=== PATIENT | female | born 2000 | race Two or more races ===

== ENCOUNTER 2019-07-02 15:29 | Outpatient (CLI) | payer OTHER ==
[2019-07-02 16:07] LABS: APPEARANCE,URINE CLEAR; BILIRUBIN,URINE NEGATIVE (NEGATIVE); COLOR,URINE STRAW; GLUCOSE, URINE NEGATIVE (NEGATIVE); KETONES,URINE NEGATIVE (NEGATIVE); LEUKOCYTE ESTERASE,URINE NEGATIVE (NEGATIVE); NITRITE,URINE NEGATIVE (NEGATIVE); PROTEIN,URINE NEGATIVE (NEGATIVE); URINE SPECIFIC GRAVITY 1.006; UROBILINOGEN,URINE NEGATIVE mg/dL (<2.0)
[2019-07-02 16:24] LABS: URINE AMPHETAMINES SCREEN NEGATIVE; URINE BARBITURATES SCREEN NEGATIVE; URINE BENZODIAZEPINES SCREEN NEGATIVE; URINE COCAINE SCREEN NEGATIVE; URINE MARIJUANA (THC) SCREEN NEGATIVE; URINE METHADONE SCREEN NEGATIVE; URINE PHENCYCLIDINE SCREEN NEGATIVE
--- NOTE | 2019-07-02 17:27 | Non Stress Test Report ---
Non Stress Test Datetime Report Generated by CPN: 07/02/2019 17:27 DEMOGRAPHIC EGA NST: 36.1 INDICATION Indication for Study (NST) Other: >32 weeks with ctx VITAL SIGNS Temperature - NST: 97.8 Pulse - NST: 86 RESP - NST: 16 NBPSYS NST: 117 NBPDIA NST: 72 MONITORING Monitor Explained: Monitor Explained; Test Explained; Patient Verbalized Understanding Time on Monitor: 07/02/2019 15:45 Time off Monitor: 07/02/2019 17:16 NST Duration: 91 NST INTERVENTIONS NST Interventions: None Physician Notified NST: Dr. Younger BABY A: [id number] BABY A Movement : Present Contraction Frequency : irregular FHR Baseline : 140 Accelerations : 15X15 Decelerations : None Variability : Moderate 6-25bpm NST Review: Meets Criteria for Reactive NST NST Review and Verified By : MC Og Results: Reactive NST REPORT Report Trigger: Send Report
== END 2019-07-02 17:21 | disposition home or self-care (01) ==
LOC: LC 15:29
PROVIDERS: ATTEND Obstetrics & Gynecology
PROC: 4A1HXCZ Monitoring of Products of Conception, Cardiac Rate, External Approach (ICD-10-PCS; principal; 2019-07-02)
DX: O47.03 False labor before 37 completed weeks of gestation, third trimester (principal); Z3A.36 36 weeks gestation of pregnancy
CPT/HCPCS: 59025; 80307; 81005